=== PATIENT | female | born 1990 | race Caucasian/White ===

== ENCOUNTER 2020-07-25 10:31 | Emergency (ER) | payer BC, OTHER ==
[~2020-07-25] VITALS: Ht 175.3 cm; Wt 69.1 kg
--- NOTE | 2020-07-25 11:53 | NUR ---
PT RESTING IN [facility], NO COMPLAINTS AT THIS TIME.
[2020-07-25] MEDS ORDERED: RACEPINEPHRINE INH 2.25%, 0.5ML ONE (11:54)
[2020-07-25] MEDS ORDERED: RACEPINEPHRINE INH 2.25%, 0.5ML NPPB ONE (12:00)
--- NOTE | 2020-07-25 12:17 | NUR ---
PT RESTING ON GURNEY, PT REPORTS FEELING MUCH BETTER AFTER TREATMENT.
[2020-07-25] MEDS ORDERED: DEXAMETHASONE 4 MG TABLET ONE (12:52)
[2020-07-25] MEDS ORDERED: DEXAMETHASONE 4 MG TABLET PO ONE (13:00)
--- NOTE | 2020-07-25 13:00 | NUR ---
PT UPDATED ON POC, AND AWARE WE WILL BE OBSERVING HER TO SEE IF CONDITION STAYS IMPROVED UNTIL 1500. PT PROVIDED FOOD AND WATER. PT RESTING IN [facility], NO NEEDS AT THIS TIME.
--- NOTE | 2020-07-25 13:54 | NUR ---
PT RESTING IN [facility], NO NEEDS AT THIS TIME.
--- NOTE | 2020-07-25 14:28 | NUR ---
PT RPEORTS HER BREATHING IS STARTING TO GET WORSE WILL UPDATE MD
[2020-07-25 15:16] VITALS: BP 125/86
== END 2020-07-25 15:19 | disposition home or self-care (01) ==
LOC: ED 12:48
DX: O99.511 Diseases of the respiratory system complicating pregnancy, first trimester (principal); J38.3 Other diseases of vocal cords; Z3A.13 13 weeks gestation of pregnancy
CPT/HCPCS: 71045; 93005; 94640; 99283

== ENCOUNTER 2020-11-16 12:16 | Outpatient (CLI) | payer BC ==
[~2020-11-16] VITALS: Ht 175.3 cm; Wt 77.2 kg
[2020-11-16] MEDS ORDERED: BETAMETHASONE 6 MG/ML, 5ML IM ONE (12:30)
== END 2020-11-16 12:17 | disposition home or self-care (01) ==
LOC: LDOP 12:16
PROVIDERS: ATTEND Student in an Organized Health Care Education/Training Program
DX: Z34.93 Encounter for supervision of normal pregnancy, unspecified, third trimester (principal); Z3A.29 29 weeks gestation of pregnancy
CPT/HCPCS: 96372; J0702

== ENCOUNTER 2020-12-31 08:38 | Outpatient (CLI) | payer BC ==
[~2020-12-31] VITALS: Ht 175.3 cm; Wt 84.0 kg
== END 2020-12-31 10:08 | disposition home or self-care (01) ==
LOC: LDOP 08:38
PROVIDERS: ATTEND Student in an Organized Health Care Education/Training Program
DX: O42.913 Preterm premature rupture of membranes, unspecified as to length of time between rupture and onset of labor, third trimester (principal); Z3A.36 36 weeks gestation of pregnancy
CPT/HCPCS: 59025; 76815; 84112

== ENCOUNTER 2021-01-22 11:34 | Inpatient (IN) | payer BC ==
[~2021-01-22] VITALS: Ht 175.3 cm; Wt 87.7 kg
[2021-01-22 14:50] VITALS: BP 126/75
[2021-01-22] MEDS ORDERED: NEWBORN KIT ONE (14:58)
[2021-01-22] MEDS ORDERED: FENTANYL PF 100 MCG/2ML IV PRN (15:00)
[2021-01-22] MEDS ORDERED: OXYTOCIN 30U/ 0.9% NaCL 500ML 500 ML IV ONE (15:00)
[2021-01-22] MEDS ORDERED: TERBUTALINE 1 MG/ML, 1ML SQ PRN (15:00)
[2021-01-22] MEDS ORDERED: CALCIUM CARBONATE 500 MG TAB.CHEW PO PRN (15:00)
[2021-01-22] MEDS ORDERED: D5%-LACTATED RINGERS 1,000 ML IV SCH (15:00)
[2021-01-22] MEDS ORDERED: METOCLOPRAMIDE 5 MG/ML, 2ML IVPush PRN (15:00)
[2021-01-22] MEDS ORDERED: ONDANSETRON 2MG/ML, 2ML IVPush PRN (15:00)
[2021-01-22] MEDS ORDERED: TERBUTALINE 1 MG/ML, 1ML IVPush PRN (15:00)
[2021-01-22] MEDS ORDERED: OXYTOCIN 30U/ 0.9% NaCL 500ML 500 ML IV PRN (15:00)
[2021-01-22] MEDS ORDERED: FENTANYL PF 100 MCG/2ML IVPush PRN (15:00)
[2021-01-22] MEDS ORDERED: LACTATED RINGERS 1,000 ML IV SCH ×2 (15:00→21:30)
[2021-01-22 15:26] LABS: BASOPHILS % (AUTO) 0 % (0-1); EOSINOPHILS % (AUTO) 1 % (1-7); LYMPHOCYTES % (AUTO) 14 % (22-44); MEAN CORPUSCULAR HEMOGLOBIN 27.9 pg (27.0-34.8); MEAN CORPUSCULAR HGB CONC 32.9 g/dL (32.4-35.8); MEAN PLATELET VOLUME 8.7 fL (7.4-10.4); MONOCYTES % (AUTO) 8 % (2-9); NEUTROPHILS % (AUTO) 77 % (42-75); PLATELET COUNT 341 x10^3/uL (130-400); RED BLOOD COUNT 4.24 x10^6/uL (3.82-5.3); RED CELL DISTRIBUTION WIDTH 13.4 % (9.6-15.2)
[2021-01-22 15:28] LABS: MD NO
[2021-01-22] MEDS ORDERED: FENTANYL PF 500 MCG, BUPIVACAINE/PF 0.5%, 30ML 62.5 ML in SODIUM CHLORIDE 0.9% 177.5 ML EPIDCONT SCH (20:30)
[2021-01-22] MEDS ORDERED: LACTATED RINGERS 1,000 ML IVBOLUS PRN (21:30)
[2021-01-22] MEDS ORDERED: NALOXONE 0.4 MG/ML, 1ML IVPush PRN (21:30)
[2021-01-22] MEDS ORDERED: EPHEDRINE 50 MG/ML, 1ML IVPush PRN (21:30)
[2021-01-22] MEDS ORDERED: FENTANYL/BUPIV./NS/PF 250 ML EPIDCONT SCH (21:30)
[2021-01-23] MEDS ORDERED: IBUPROFEN 600 MG TABLET ONE (06:56)
[2021-01-23] MEDS: OXYTOCIN 30U/ 0.9% NaCL 500ML 500 ML IV SCH ×2 (06:57→17:00)
[2021-01-23] MEDS: IBUPROFEN 600 MG TABLET PO PRN ×3 (06:58→23:43)
[2021-01-23] MEDS ORDERED: MISOPROSTOL 200 MCG TABLET PR PRN (07:00)
[2021-01-23] MEDS ORDERED: ONDANSETRON 2MG/ML, 2ML IV PRN (07:00)
[2021-01-23] MEDS ORDERED: MAGNESIUM HYDROXIDE 8%, 30ML UDC PO PRN (07:00)
[2021-01-23] MEDS ORDERED: OXYcodone/APAP 5/325MG TABLET PO PRN ×2 (07:00)
[2021-01-23] MEDS ORDERED: DIPH,PERTUSS(ACELL),TET VAC/PF NC IM-VACC PRN (07:00)
[2021-01-23] MEDS ORDERED: SIMETHICONE 80 MG CHEW TAB PO PRN (07:00)
[2021-01-23] MEDS ORDERED: ACETAMINOPHEN 325 MG TABLET PO PRN ×2 (07:00)
[2021-01-23] MEDS ORDERED: CALCIUM CARBONATE 500 MG TAB.CHEW PO PRN (07:00)
[2021-01-23] MEDS ORDERED: RHOGAM FROM BLOOD BANK 1 NOTE EA IM/IV ONE (07:00)
[2021-01-23 08:45] VITALS: BP 111/67
[2021-01-23] MEDS: PRENATAL VIT/IRON/FA 1 EACH TABLET PO SCH (09:00)
[2021-01-23 13:50] VITALS: BP 117/62
[2021-01-23 15:33] LABS: BASOPHILS % (AUTO) 0 % (0-1); EOSINOPHILS % (AUTO) 0 % (1-7); LYMPHOCYTES % (AUTO) 8 % (22-44); MEAN CORPUSCULAR HEMOGLOBIN 27.4 pg (27.0-34.8); MEAN CORPUSCULAR HGB CONC 32.8 g/dL (32.4-35.8); MEAN PLATELET VOLUME 9.2 fL (7.4-10.4); MONOCYTES % (AUTO) 6 % (2-9); NEUTROPHILS % (AUTO) 85 % (42-75); PLATELET COUNT 322 x10^3/uL (130-400); RED BLOOD COUNT 4.11 x10^6/uL (3.82-5.3); RED CELL DISTRIBUTION WIDTH 13.5 % (9.6-15.2)
[2021-01-23 15:39] LABS: MD NO
[2021-01-23 19:45] VITALS: BP 118/69
[2021-01-23 23:43] VITALS: BP 102/63
[2021-01-23] MEDS: DOCUSATE 100 MG CAPSULE PO PRN (23:43)
[2021-01-24] MEDS: OXYTOCIN 30U/ 0.9% NaCL 500ML 500 ML IV SCH (00:29)
[2021-01-24 04:50] VITALS: BP 112/64
[2021-01-24] MEDS: IBUPROFEN 600 MG TABLET PO PRN (07:23)
[2021-01-24] MEDS: PRENATAL VIT/IRON/FA 1 EACH TABLET PO SCH (07:23)
[2021-01-24] MEDS: DOCUSATE 100 MG CAPSULE PO PRN (07:23)
[2021-01-24 07:45] VITALS: BP 129/85
[2021-01-24] MEDS ORDERED: IBUP-1222 PO (07:48)
== END 2021-01-24 11:15 | disposition home or self-care (01) | DRG 807 ==
LOC: LDIP 14:40 → 2NW 01-23 09:36
PROVIDERS: ADMIT Student in an Organized Health Care Education/Training Program; ATTEND Student in an Organized Health Care Education/Training Program
PROC: 10E0XZZ Delivery of Products of Conception, External Approach (ICD-10-PCS; principal; 2021-01-23)
PROC: 0HQ9XZZ Repair Perineum Skin, External Approach (ICD-10-PCS; 2021-01-23)
PROC: 10907ZC Drainage of Amniotic Fluid, Therapeutic from Products of Conception, Via Natural or Artificial Opening (ICD-10-PCS; 2021-01-23)
PROC: 3E0S3BZ Introduction of Anesthetic Agent into Epidural Space, Percutaneous Approach (ICD-10-PCS; 2021-01-23)
PROC: 00HU33Z Insertion of Infusion Device into Spinal Canal, Percutaneous Approach (ICD-10-PCS; 2021-01-23)
DX: O77.0 Labor and delivery complicated by meconium in amniotic fluid (principal); Z37.0 Single live birth; O99.02 Anemia complicating childbirth; Z20.822 Contact with and (suspected) exposure to COVID-19; O70.0 First degree perineal laceration during delivery; Z3A.39 39 weeks gestation of pregnancy
CPT/HCPCS: 36415; 85025; 86592; 86850; 86900; 87635; G0378; J2590; J3010; J7120